=== PATIENT | male | born 1965 | race Caucasian/White ===

== ENCOUNTER 2019-01-27 06:39 | Day surgery (SDC) | payer BC ==
[2019-01-26 15:42] VITALS: BMI 28.8
[2019-01-27] MEDS ORDERED: LIDOCAINE 1%/EPI 1:100000 (20 ML MULTI DOSE VIAL) ONE (07:18)
[2019-01-27] MEDS ORDERED: BUPIVACAINE HCL/PF 0.5% (5MG/ML) 10 ML VIAL ONE (07:18)
[2019-01-27] MEDS ORDERED: MIDAZOLAM HCL 2 MG/2 ML SINGLE DOSE VIAL ONE (07:47)
[2019-01-27] MEDS ORDERED: SUCCINYLCHOLINE CHLORIDE 200 MG/10 ML VIAL ONE (07:47)
[2019-01-27] MEDS ORDERED: PROPOFOL 20 ML ONE ×2 (07:47)
--- NOTE | 2019-01-27 07:56 | HP ---
[facility] - Chief Complaint Chief Complaint: right knee pain - Past Medical History Allergies/Adverse Reactions: Allergies Allergy/AdvReac Type Severity Reaction Status Date / Time No Known Allergies Allergy Verified 01/26/19 15:33 - Current Medications Current Medications: Home Medications Medication Instructions Recorded Rosuvastatin Calcium [Crestor] 10 mg PO DAILY 01/26/19 Telmisartan 80 mg PO DAILY 01/26/19 Ubidecarenone [Coq10] 50 mg PO DAILY 01/26/19 metFORMIN HCL [Metformin HCl] 500 mg PO BID 01/26/19 Oxycodone HCl/Acetaminophen 1 tab PO Q6H #20 tablet MDD 4 01/27/19 [Percocet 5-325 mg Tablet] [facility] Physical Exam - Physical Examination Vital Signs: Vital Signs Period Temp Pulse Resp BP Sys/Mendiola Pulse Ox Last 24 Hr 99 F 78 18 165/97 98 General Appearance: Well Nourished, Well Developed, Alert & Oriented x3 ENT: Clear Lung: Normal air movement Heart: Regular rate & rhythm Extremities: Other (right knee- + swelling, + ttp, decr rom, + mcmurrays, nvi MRI + mt) Neurological: Intact, Alert, Oriented [facility] Impression/Plan - Impression/Plan Impression: right knee internal derangement Operative Procedure: right knee arthroscopy Date to be Performed: 01/27/19
[2019-01-27] MEDS ORDERED: DEXAMETHASONE SOD PHOSPHATE 4 MG/1 ML VIAL ONE (08:13)
[2019-01-27] MEDS ORDERED: ONDANSETRON 4 MG/2 ML VIAL ONE (08:13)
[2019-01-27 08:56] VITALS: TEMP 97.7
[2019-01-27] MEDS ORDERED: ONDANSETRON 4 MG/2 ML VIAL IVPUSH PRN (09:10)
[2019-01-27] MEDS ORDERED: oxyCODONE HCL 5 MG TABLET PO PRN ×2 (09:10)
[2019-01-27] MEDS ORDERED: LACTATED RINGERS SOLUTION 1,000 ML IV SCH (09:15)
[2019-01-27 10:12] VITALS: BP 152/90; PULSE 64
--- NOTE | 2019-01-27 14:24 | OP ---
Operative Note - Note: Operative Date: 01/27/19 (everardo) Pre-Operative Diagnosis: right knee internal derangement Operation: right knee arthroscopy with debridement chondroplasty Post-Operative Diagnosis: Same as Pre-op Surgeon: Kain Lora Anesthesiologist/PINMAKER: Jie Grewal Anesthesia: General, Local Specimens Removed: shavings Estimated Blood Loss (mls): 5 Operative Report Dictated: Yes
--- NOTE | 2019-01-27 17:53 | OP ---
DATE OF OPERATION: 01/27/2019 PREOPERATIVE DIAGNOSIS: Internal derangement right knee. POSTOPERATIVE DIAGNOSIS: Internal derangement right knee. PROCEDURE: Right knee arthroscopy and debridement. SURGICAL ATTENDING: Kain Lora M.D. ANESTHESIA: General with LMA. CLOSURE: 4-0 nylon. COMPLICATIONS: None. CONDITION: To recovery in stable condition. DESCRIPTION OF OPERATIVE PROCEDURE: Patient was taken to the operating room on January 27, 2019. General anesthesia with LMA was administered by the anesthesiologist. Right lower extremity was prepped and draped in the usual sterile fashion. The medial and lateral infrapatellar portal sites were infiltrated with 1% Xylocaine with epinephrine. Both portals were then made with 15 blade followed by blunt trocar. The scope was placed in the lateral infrapatellar portal and up into the suprapatellar pouch. The knee inflated with a cocktail of 10 mL of 1% Xylocaine, 10 mL 0.5% Marcaine and 20 mL of arthroscopic saline. After allowing the anesthetic to sit in the knee, the procedure was performed. The undersurface of the patella and trochlea visualized to be intact, the medial and lateral gutters were visualized to be intact with no loose bodies. With valgus stress on the knee, the medial compartment was entered and the medial meniscus was visualized and found to be stable with no appreciable tear. The medial femoral condyle was run and was found to be intact as was the medial tibial plateau. At 90 degrees, the ACL and PCL were visualized and probed and found to be intact. There was a large amount of fibrous tissue anteriorly, and the notch was debrided using the shaver. In the figure of 4 position, the lateral compartment was entered. The lateral meniscus was visualized and probed and found to be intact. The lateral femoral condyle was was run and was found to be intact as was the lateral tibial plateau. The knee was irrigated with copious amounts of irrigation. Port was closed with 4-0 nylon. Prior to closure, 20 mL of 0.5% Marcaine was infused through the scope trocar for postoperative analgesia prior to pulling the trocar. Sterile pressure dressing was placed over the knee. Patient awakened from anesthesia and transferred to recovery in stable condition. No complications. Estimated blood loss negligible. Alia [id number]
--- NOTE | 2019-01-28 14:06 | PATH ---
Surgical Pathology Report Patient Name: BENITO PHAN [facility]. Rec. #: [id number] /Age/Gender: 1965 (Age: 53) / M Account: [id number] Location: [facility] AMBULATORY Taken: 01/27/2019 Received: 01/27/2019 Reported: 01/28/2019 Physicians: Kain Lora M.D. Specimen(s) Received Right knee shavings Clinical History Tear right knee Final Diagnosis KNEE SHAVINGS, RIGHT, ARTHROSCOPY WITH DEBRIDEMENT: FRAGMENTS OF DENSE FIBROCONNECTIVE TISSUE, ADIPOSE TISSUE, AND REACTIVE SYNOVIUM. Electronically Signed Brittany Ruiz M.D. Gross Description Received in formalin, labeled "right knee shavings," is a 4.0 x 3.0 x 0.3 cm. aggregate of prajapati-yellow soft tissue fragments. A education courses sales representative portion is submitted in one cassette. /01/27/201901/27/2019
== END 2019-01-27 10:20 | disposition home or self-care (01) ==
LOC: FASU 06:39
PROVIDERS: ATTEND Orthopaedic Surgery
PROC: 0SBC4ZZ Excision of Right Knee Joint, Percutaneous Endoscopic Approach (ICD-10-PCS; principal; 2019-01-27 08:19)
DX: M23.8X1 Other internal derangements of right knee (principal)
CPT/HCPCS: 82962; 88304-TC; 94760